=== PATIENT | female | born 1945 | race Caucasian/White ===

== ENCOUNTER 2020-11-08 15:37 | Emergency (ER) | payer MEDICARE ==
[~2020-11-08] VITALS: Ht 170.2 cm; Wt 59.0 kg
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
[2020-11-08 16:40] VITALS: BP 170/101
[2020-11-08] MEDS ORDERED: CLON0.1T PO (16:45)
--- NOTE | 2020-11-08 17:07 | EKG ---
[facility] ED [facility] [place] [id number] Test Date: 2020-11-08 Test Time: 15:51:15 Pat Name: JAMAL CH Department: Room: Gender: F [employer] Specialist: ANTOINETTE : 1945 Requested By: SHMUEL LOPEZ Order Number: [id number] Reading MD: Jose R Juarez Measurements Intervals [place] Rate: 76 P: 74 GA: 166 QRS: -7 QRSD: 78 T: 47 QT: 376 QTc: 427 Interpretive Statements SINUS RHYTHM LEFT ATRIAL ABNORMALITY LEFTWARD AXIS ABNORMAL ECG RI6.02 No previous ECG available for comparison Electronically Signed On 11-13-2020 9:56:58 [employer]QU[employer]CH[employer]IC by Jose R Juarez
== END 2020-11-08 16:51 | disposition home or self-care (01) ==
LOC: ER 15:37
DX: I10 Essential (primary) hypertension (principal); R51.9 Headache, unspecified; J44.9 Chronic obstructive pulmonary disease, unspecified
CPT/HCPCS: 93005; 99284

== ENCOUNTER 2020-11-23 14:44 | Emergency (ER) | payer MEDICARE ==
[~2020-11-23] VITALS: Ht 170.2 cm; Wt 59.0 kg
[~2020-11-23 14:44] MED LIST: CLON0.1T PO
--- NOTE | 2020-11-23 15:07 | PHYS DOC ---
Past History Past Medical History: Cancer, COPD, Hypertension, Other Additional Past Medical Histor: TREMORS Past Surgical History: Knee Replacement Additional Past Surgical Histo: IMPLANT FOR TREMORS Alcohol Use: None General Adult EDM: Chief Complaint: MECHANICAL FALL HPI: HPI: 75-year-old female past medical history of hypertension, COPD and familiar tremors, presents the ED with complaints of left wrist pain and tailbone pain after patient slipped on water on her porch, reports she landed in a seated position with her left hand flexed at her side to cetch her fall. Is right-hand dominant. No prior injury to the left hand/wrist. Reports she did not hit her head or lose consciousness. Is not any anticoagulants. Denies any alcohol or drug use. Does report she occasionally drinks no more than 1 shot of whiskey or liquor to help her sleep (last drink was 1.5 days ago). Reports she ambulated after falling. Reports her tetanus is up-to-date. Review of Systems: Review of Systems: Constitutional: Denies fever or chills Eyes: Denies change in visual acuity HENT: Denies nasal congestion or sore throat Respiratory: Denies cough or shortness of breath Cardiovascular: Denies chest pain or edema GI: Denies abdominal pain, nausea, vomiting, bloody stools or diarrhea : Denies dysuria, urinary or bowel retention or incontinence Musculoskeletal: Denies midline back pain, saddle anesthesia, radiculopathy, Integument: Denies rash or diaphoresis Neurologic: Denies headache, neck pain, focal weakness or sensory changes Endocrine: Denies polyuria or polydipsia Lymphatic: Denies swollen glands Psychiatric: Denies depression or anxiety Allergies: Allergies: Allergies Coded Allergies Type Severity Reaction Last Updated Verified erythromycin base Allergy Unknown Rash 11/23/20 Yes morphine Allergy Unknown stomach upset 11/23/20 Yes Physical Exam: PE: Constitutional: Well developed, well nourished, no acute distress, non-toxic appearance. HENT: Normocephalic, atraumatic, no periorbital hematoma, no septal hematoma, no hemotympanum, no oral bleeding, no signs of head trauma Eyes: PERRLA, EOMI, conjunctiva normal, no discharge. Neck: Normal range of motion, supple, Cardiovascular: S1/2 present, regular rhythm Lungs & Thorax: Speaking in full sentences, bilateral equal chest rise, no tachypnea or increased work of breathing Abdomen: soft, no tenderness, Skin: Warm, dry, no erythema, no rash. [] Back: No midline spinal tenderness or step-offs, pain over coccyx, no petechiae or contusions, Extremities: Equal upper extremity radial pulses, obvious left lateral wrist hematoma/ecchymosis w/medial wrist/dinner fork deformity, no left shoulder or elbow pain, baseline tremors, lifts both legs off stretcher but c/o coccyx pain when lifting left leg Neurologic: Alert and oriented X 3, normal motor function, normal sensory function, no focal deficits noted. [] Psychologic: Affect normal, judgement normal, mood normal. [] Current Patient Data: Vital Signs: Vital Signs Date Time Temp Pulse Resp B/P (MAP) Pulse Ox O2 Delivery O2 Flow Rate FiO2 11/23/20 14:45 98.4 71 16 185/109 (134) 98 Room Air EKG: EKG: [] Radiology/Procedures: Radiology/Procedures: IMAGING REPORT Signed PATIENT: JAMAL CH ACCOUNT: [id number] : 1945 LOCATION: ER AGE: 75 SEX: F EXAM STATUS: REG ER ORD. PHYSICIAN: KYRA TONG DO REASON: pain, pt fell PROCEDURE: FOREARM LEFT XR FOREARM_LEFT 2 VIEWS, XR HAND_LEFT 2 VIEWS, XR LT WRIST 2 VIEWS History: Reason: pain, pt fell / Spl. Instructions: / History: Technique: 2 views left forearm, 2 views left wrist and 2 views left hand Comparison: None. Findings: Acute comminuted intra-articular left distal radius fracture with dorsal displacement and angulation. Comminuted the distal ulnar fracture with displaced ulnar styloid. Advanced first carpal metacarpal triscaphe DJD. Impression: 1. Acute comminuted left distal radial intra-articular fracture with dorsal displacement and angulation. 2. Acute distal ulnar fracture with displaced ulnar styloid. Electronically signed by: Leo Mathis DO (11/23/2020 3:54 PM) [facility] DICTATED AND SIGNED BY: LEO MATHIS DO DATE: 11/23/20 1549 CC: MARK DOUGLASS; KYRA TONG DO ~MTH0 0 IMAGING REPORT Signed PATIENT: JAMAL CH ACCOUNT: [id number] : 1945 LOCATION: ER AGE: 75 SEX: F EXAM STATUS: REG ER ORD. PHYSICIAN: KYRA TONG DO REASON: coccyx pain, pt fell PROCEDURE: PELVIS XR SACRUM AND COCCYX 2+VIEWS, XR PELVIS 1-2V History: Reason: coccyx pain, pt fell / Spl. Instructions: / History: Technique: AP view the pelvis and 3 views of the sacrum and coccyx. Comparison: None. Findings: Normal AP alignment of the hips. No fracture. Mild bilateral hip DJD. Mild pubic symphysis DJD. Lower lumbar spondylosis. Chronic angular appearance of the lower sacrum. No definite fracture. Impression: 1. No acute osseous abnormality. Electronically signed by: Leo Mathis DO (11/23/2020 3:57 PM) [facility] DICTATED AND SIGNED BY: ELO MATHIS DO DATE: 11/23/20 1554 CC: MARK DOUGLASS; KYRA TONG DO ~MTH0 0 Indication: Left Colles' fracture Consent: Verbal consent given by patient Procedure: The pre-reduction exam showed Colles' flexure with dorsal displacement. The patient was placed in supine position. Anesthesia/pain control IM Dilaudid and hematoma block with ropivacaine. Reduction of the left distal radius fracture was performed by by myself. Post reduction films show some improvement-not total resolution. A post-reduction exam revealed neuro exam intact. The affected area was immobilized with sugar tong splint. The patient tolerated the procedure very well. Complications: None Patient and daughter at bedside informed of findings. Left sugar tong splint applied by myself and RN. The splint is checked by myself, with appropriate stabilization of the injury. Distal capillary refill intact and distal neurologic function intact Heart Score: Risk Factors: Risk Factors: DM, Current or recent (<one month) smoker, HTN, HLP, family history of CAD, obesity. Risk Scores: Score 0 - 3: 2.5% MACE over next 6 weeks - Discharge Home Score 4 - 6: 20.3% MACE over next 6 weeks - Admit for Clinical Observation Score 7 - 10: 72.7% MACE over next 6 weeks - Early Invasive Strategies Course & Med Decision Making: Course & Med Decision Making Pertinent Labs and Imaging studies reviewed. (See chart for details) Concern for left distal radius fracture, Colles' fracture with fracture dislocation of left ulnar styloid. Patient tolerated hematoma block and 1 mg of IM Dilaudid -was able to reduce without any significant patient discomfort (I did offer procedural sedation but both patient and her daughter at bedside declined this option given risk of apnea and patient's high pain tolerance). Patient placed in a sugar tong splint -her daughter given instructions on splint care, urgent orthopedic surgery evaluation, and prescription medication education (daughter is a pumper gauger apprentice who use to work at [employer] and pt lives with her - will observe with DosYogures use). Will discharge home with strict ED return precautions were given for severe pain, neurologic deficits, skin color changes or sensorimotor deficits. Encouraged urgent outpatient follow-up with PMD and urgent orthopedic evaluation in the next 7 days. Life-threatening processes were considered but are low suspicion at this time, given history, physical exam and ED workup. Pt was educated on all prescription medications and adverse effects. All patient's questions were answered and pt was stable at time of discharge. Life/limb-threatening differential includes but is not limited to, intracranial hemorrhage, diffuse axonal injury, spinal cord syndrome, unstable cervical fracture or SCIWORA, fractures or joint dislocations, neurovascular injuries, organ injury or laceration, pneumothorax, pneumoperitoneum, pericardial tamponade, unstable pelvic fracture, compartment syndrome, flail chest or respiratory distress, burn injury or asphyxiation I spoken with the patient and her caregivers. I explained the patient's condition, diagnoses and treatment plan based on the information available to me at this time. I have answered the patient and her caregiver's questions and addressed any concerns. The patient and her caregivers have a good understanding of patient's diagnosis, condition and treatment plan as can be expected at this point. Vital signs have been stable. Patient's condition is stable and appropriate for discharge from the emergency department. Patient will pursue further outpatient evaluation with primary care physician or other designated or consulting physician as outlined in the discharge instructions. The patient and/or caregivers are agreeable to this plan of care and follow-up instructions have been explained in detail. The patient and/or caregivers have received these instructions in written form and have expressed an understanding of the discharge instructions. The patient and/or caregivers are aware that any significant change of condition or worsening of symptoms should prompt immediate return to this or the closest emergency department or call to 91. Marija Disclaimer: Marija Disclaimer: This electronic medical record was generated, in whole or in part, using a voice recognition dictation system. Departure Departure: Impression: Primary Impression: Colles' fracture of left radius Additional Impressions: Dislocation of left ulnar styloid Fracture of right ulnar styloid Disposition: 01 DC HOME SELF CARE/HOMELESS Condition: STABLE Referrals: MARK DOUGLASS (PCP) Patient Instructions: Cast or Splint Care, Colles Fracture, Radius Fracture with [facility], Ulnar Fracture Additional Instructions: FOLLOW UP WITH ORTHOPEDICS: within 7 days for ortho evaluation [facility] [address] [address] EMERGENCY DEPARTMENT GENERAL DISCHARGE INSTRUCTIONS Thank you for coming to [facility] (ED) today and trusting us with you care. We trust that you had a positivie experience in our Emergency Department. If you wish to speak to the department management, you may call the director at [phone]. YOUR FOLLOW UP INSTRUCTIONS ARE FOLLOWS: 1. Do you have a private Doctor? If you do not have a private doctor, please ask for a resource list of physicians or clinics that may be able to assist you with follow up care. 2. The Emergency Physician has interpreted your x-rays. The X-Ray specialist will also review them. If there is a change in the findings, you will be notified in 48 hours when at all possible. 3. A lab test or culture has been done, your results will be reviewed and you will be notified if you need a change in treatment. ADDITIONAL INSTRUCTIONS AND INFORMATION: 1. Your care today has been supervised by a physician who is specially trained in emergency care. Many problems require more than one evaluation for a complete diagnosis and treatment. We recommend that you schedule your follow up appointment as recommended to ensure complete treatment of you illness or injury. If you are unable to obtain follow up care and continue to have a problem, or if your condition worsens, we recommend that you return to the ED. 2. We are not able to safely determine your condition over the phone nor are we able to give sound medical advice over the phone. For these safety reasons, if you call for medical advice we will ask you to come to the ED for further evaluation. 3. If you have any questions regarding these discharge instructions please call the ED at [phone]. SAFETY INFORMATION: In the interest of safety, wellness, and injury prevention; we encourage you to wear your sealbelt, if you smoke; quite smoking, and we encourage family to use a protective helmet for bicycling and other sporting events that present an increased risk for head injury. IF YOUR SYMPTOMS WORSEN OR NEW SYMPTOMS DEVELOP, OR YOU HAVE CONCERNS ABOUT YOUR CONDITION; OR IF YOUR CONDITION WORSENS WHILE YOU ARE WAITING FOR YOUR FOLLOW UP A PPOINTMENT; EITHER CONTACT YOUR PRIMARY CARE DOCTOR, THE PHYSICIAN WHOSE NAME AND NUMBER YOU WERE GIVEN, OR RETURN TO THE ED IMMEDIATELY. Scripts Hydrocodone Bit/Acetaminophen (HYDROCODONE-APAP 5-325 ) 1 Each Tablet 1 TAB PO PRN Q6HRS PRN for PAIN for 4 Days, #16 TAB 0 Refills take with colace and fiber, causes constipation Prov: KYRA TONG DO 11/23/20 KYRA TONG DO Nov 23, 2020 15:06
--- NOTE | 2020-11-23 15:56 | RAD ---
XR FOREARM_LEFT 2 VIEWS, XR HAND_LEFT 2 VIEWS, XR LT WRIST 2 VIEWS History: Reason: pain, pt fell / Spl. Instructions: / History: Technique: 2 views left forearm, 2 views left wrist and 2 views left hand Comparison: None. Findings: Acute comminuted intra-articular left distal radius fracture with dorsal displacement and angulation. Comminuted the distal ulnar fracture with displaced ulnar styloid. Advanced first carpal metacarpal triscaphe DJD. Impression: 1. Acute comminuted left distal radial intra-articular fracture with dorsal displacement and angulat ion. 2. Acute distal ulnar fracture with displaced ulnar styloid. Electronically signed by: Leo Mathis DO (11/23/2020 3:54 PM) [facility]
--- NOTE | 2020-11-23 15:59 | RAD ---
XR SACRUM AND COCCYX 2+VIEWS, XR PELVIS 1-2V History: Reason: coccyx pain, pt fell / Spl. Instructions: / History: Technique: AP view the pelvis and 3 views of the sacrum and coccyx. Comparison: None. Findings: Normal AP alignment of the hips. No fracture. Mild bilateral hip DJD. Mild pubic symphysis DJD. Lower lumbar spondylosis. Chronic angular appearance of the lower sacrum. No definite fracture. Impression: 1. No acute osseous abnormality. Electronically signed by: Leo Mathis DO (11/23/2020 3:57 PM) [facility]
--- NOTE | 2020-11-23 15:59 | RAD ---
XR SACRUM AND COCCYX 2+VIEWS, XR PELVIS 1-2V History: Reason: coccyx pain, pt fell / Spl. Instructions: / History: Technique: AP view the pelvis and 3 views of the sacrum and coccyx. Comparison: None. Findings: Normal AP alignment of the hips. No fracture. Mild bilateral hip DJD. Mild pubic symphysis DJD. Lower lumbar spondylosis. Chronic angular appearance of the lower sacrum. No definite fracture. Impression: 1. No acute osseous abnormality. Electronically signed by: Leo Mathis DO (11/23/2020 3:57 PM) [facility]
[2020-11-23] MEDS ORDERED: HYDROmorphone PF 1 MG/ML DISP.SYRIN IM ONE (16:30)
[2020-11-23] MEDS ORDERED: ONDANSETRON ODT 4 MG TAB.RAPDIS PO ONE (16:30)
[2020-11-23] MEDS ORDERED: BUPIVACAINE MPF 0.5% 30 ML VIAL. INFIL ONE (16:30)
[2020-11-23 17:20] VITALS: BP 187/97
[2020-11-23] MEDS ORDERED: HYDR-2155 PO (17:38)
--- NOTE | 2020-11-23 17:44 | RAD ---
XR LT WRIST 2 VIEWS History: Reason: s.p reduction / Spl. Instructions: / History: Technique: 2 views left wrist Comparison: November 23, 2020 Findings: Acute comminuted intra-articular left distal radial fracture, unchanged alignment. Acute distal ulnar fracture with displaced ulnar styloid, unchanged alignment. Interval casting. Advanced first carpome tacarpal and triscaphe DJD. Impression: 1. Interval casting acute comminuted distal radial and ulnar fractures, unchanged alignment. Electronically signed by: Leo Mathis DO (11/23/2020 5:41 PM) [facility]
== END 2020-11-23 17:45 | disposition home or self-care (01) ==
LOC: ER 14:44
DX: S63.075A Dislocation of distal end of left ulna, initial encounter (principal); S52.532A Colles' fracture of left radius, initial encounter for closed fracture; J44.9 Chronic obstructive pulmonary disease, unspecified; I10 Essential (primary) hypertension; Z98.890 Other specified postprocedural states; Z85.9 Personal history of malignant neoplasm, unspecified; Z88.1 Allergy status to other antibiotic agents; Z88.6 Allergy status to analgesic agent; W19.XXXA Unspecified fall, initial encounter; Y93.89 Activity, other specified; Y92.89 Other specified places as the place of occurrence of the external cause; Y99.8 Other external cause status
CPT/HCPCS: 25605; 72170; 72220; 73090; 73100; 73120; 96372; 99284; J1170; Q0162

== ENCOUNTER → 2020-12-31 | Outpatient (CLI) | payer MEDICARE ==
[~2020-12-31] MED LIST changes: +HYDR-2155 PO
--- NOTE | 2021-01-01 08:52 | RAD ---
EXAM: CT Chest without IV contrast INDICATION: Reason: SHORT OF AIR, EMPHYSEMA / Spl. Instructions: / History: TECHNIQUE: Multi-detector row CT images were acquired from the thoracic inlet through the upper abdo men without the use of IV contrast. Sagittal and coronal images were acquired from the transaxial jana a. All CT scans performed at this facility utilize dose optimization techniques as appropriate to the exam, including the following: Automated exposure control and adjustment of the mA and/or KV accordi ng to patient size (this includes techniques or standardized protocols for targeted exams where dose is indication/reason for exam). COMPARISON: PA and lateral views of the chest dated 12/27/2020 FINDINGS: The absence of IV contrast limits evaluation of soft tissue pathology. CARDIOVASCULAR: Normal caliber thoracic aorta with tortuosity. Multivessel coronary calcifications. Normal heart size. MEDIASTINUM & JAYME: Small hiatal hernia. LUNGS: Mild diffuse centrilobular emphysema. A 3 mm pleural-based peripheral left lower lobe pulmonar y nodule (image 73 series 2) is present. A calcified nodule in the left lateral costophrenic angle is also present (image 80). There is mild peribronchial thickening most conspicuous in the right lower lobe. Tiny linear scarring of the medial right left lung base (image 80). Otherwise no pulmonary infi ltrate, nodule, or other focal abnormality. PLEURAL SPACE: No pleural effusions or pneumothorax. OSSEOUS & SOFT TISSUE: Left chest neurostimulator. ABDOMEN: The visualized portions of the upper abdomen are unremarkable. IMPRESSION: 1. Emphysema with peribronchial thickening best appreciated in the right lower lobe that could reflec t sequelae of chronic bronchitis. No parenchymal consolidation. Per Fleischner Society guidelines for pulmonary nodule follow-up, the 3 mm peripheral left lower lobe pulmonary nodule can be followed up in 12 months at the referring provider's discretion (i.e. it is optional). 2. Extensive coronary calcification, primarily along the LAD. Electronically signed by: Qasim Hearn MD (01/01/2021 8:49 AM) [id number]
== END ==
LOC: CT 13:32
PROVIDERS: ATTEND Internal Medicine Pulmonary Disease
DX: J43.9 Emphysema, unspecified (principal); R91.1 Solitary pulmonary nodule; I25.10 Atherosclerotic heart disease of native coronary artery without angina pectoris
CPT/HCPCS: 71250

== ENCOUNTER 2021-06-18 20:24 | Emergency (ER) | payer MEDICARE, OTHER ==
[~2021-06-18] VITALS: Ht 170.2 cm; Wt 59.0 kg
[2021-06-18] MEDS ORDERED: hydrALAZINE 20 MG/ML VIAL. IV ONE (20:45)
[2021-06-18 21:08] LABS: BILIRUBIN,URINE NEG (NEG); CLARITY,URINE CLEAR; COLOR,URINE YELLOW; GLUCOSE,URINE NEG (NEG); NITRITE,URINE NEG (NEG); UROBILINOGEN,URINE 0.2 mg/dL (0.2 mg/dL)
[2021-06-18 21:13] LABS: BACTERIA,URINE 0 /HPF (0-FEW); RBC,URINE 0 /HPF (0-2)
--- NOTE | 2021-06-18 21:17 | PHYS DOC ---
Past History Past Medical History: Cancer, COPD, Hypertension, Other Additional Past Medical Histor: TREMORS Past Surgical History: Knee Replacement Additional Past Surgical Histo: IMPLANT FOR TREMORS Alcohol Use: None General Adult EDM: Chief Complaint: HYPERTENSION HPI: HPI: 75-year-old female presents with hypertension. She was at a doctor's appointment today and her blood pressure was elevated. She had 2 additional blood pressures taken and they were even higher. 200s over 110s. They advised the patient to come to emergency room. They went to and sat in the emergency room for an hour and a half. They then decided to leave, drive all the way over here and come to this ER. The patient has some mild dizziness but no other symptoms. She has been taking her medications. She takes all meds in the morning. She has no idea why but blood pressure is high today. Review of Systems: Review of Systems: Constitutional: Denies fever or chills Eyes: Denies change in visual acuity HENT: Denies nasal congestion or sore throat Respiratory: Denies cough or shortness of breath Cardiovascular: Denies chest pain or edema GI: Denies abdominal pain, nausea, vomiting, bloody stools or diarrhea : Denies dysuria Musculoskeletal: Denies back pain or joint pain Integument: Denies rash Neurologic: Dizziness. Denies headache, focal weakness or sensory changes Endocrine: Denies polyuria or polydipsia Lymphatic: Denies swollen glands Psychiatric: Denies depression or anxiety Current Medications: Current Meds: Current Medications Medications (Trade) Dose Ordered Sig/[facility] Start Time Stop Time Status Last Admin Dose Admin Hydralazine HCl (Apresoline) 10 mg 1X ONCE 06/18/21 20:45 06/18/21 20:52 DC Allergies: Allergies: Allergies Coded Allergies Type Severity Reaction Last Updated Verified erythromycin base Allergy Unknown Rash 11/23/20 Yes morphine Allergy Unknown stomach upset 11/23/20 Yes Physical Exam: PE: Constitutional: Well developed, well nourished, no acute distress, non-toxic appearance. [] HENT: Normocephalic, atraumatic, bilateral external ears normal, oropharynx moist, no oral exudates, nose normal. [] Eyes: PERRLA, EOMI, conjunctiva normal, no discharge. [] Neck: Normal range of motion, no tenderness, supple, no stridor. [] Cardiovascular: Heart rate regular rhythm, no murmur [] Lungs & Thorax: Bilateral breath sounds clear to auscultation [] Abdomen: Bowel sounds normal, soft, no tenderness, no masses, no pulsatile masses. [] Skin: Warm, dry, no erythema, no rash. [] Back: No tenderness, no CVA tenderness. [] Extremities: No tenderness, no cyanosis, no clubbing, ROM intact, no edema. [] Neurologic: Essential tremor. Alert and oriented X 3, normal motor function, normal sensory function, no focal deficits noted. [] Psychologic: Affect normal, judgement normal, mood frustrated. [] Current Patient Data: Labs: Laboratory Tests Test 06/18/21 20:45 Urine Collection Type Unknown Urine Color Yellow Urine Clarity Clear Urine pH 7.0 Urine Specific [place] 1.010 Urine Protein Neg (NEG-TRACE) Urine Glucose (UA) Neg mg/dL (NEG) Urine Ketones (Stick) Neg mg/dL (NEG) Urine Blood Neg (NEG) Urine Nitrite Neg (NEG) Urine Bilirubin Neg (NEG) Urine Urobilinogen Dipstick 0.2 mg/dL (0.2 mg/dL) Urine Leukocyte Esterase Trace (NEG) Urine RBC 0 /HPF (0-2) Urine WBC 1-4 /HPF (0-4) Urine Squamous Epithelial Cells None /LPF Urine Bacteria 0 /HPF (0-FEW) EKG: EKG: Sinus rhythm, rate 63, leftward axis, no ST elevation or depression. [] Radiology/Procedures: Radiology/Procedures: [] Impressions: EXAMINATION: Chest radiograph. VIEWS: Single AP view of the chest COMPARISON: CT chest from 12/31/2020 INDICATION:75 years, Female, hypertension. FINDINGS: Left chest neurostimulator. Normal cardiomediastinal silhouette. Similar blunting of the left costophrenic angle with scattered bibasilar scarring/atelectasis. No focal consolidation. No pleural effusion or pneumothorax. No acute osseous process. IMPRESSION: No acute cardiopulmonary process. Electronically signed by: Arik Mark DO (06/19/2021 12:00 AM) [facility] DICTATED AND SIGNED BY: ARIK MARK DO DATE: 06/18/21 4504 CC: HARMONY TA DO; MARK DOUGLASS ~MTH0 0 Heart Score: C/O Chest Pain: N/A Risk Factors: Risk Factors: DM, Current or recent (<one month) smoker, HTN, HLP, family history of CAD, obesity. Risk Scores: Score 0 - 3: 2.5% MACE over next 6 weeks - Discharge Home Score 4 - 6: 20.3% MACE over next 6 weeks - Admit for Clinical Observation Score 7 - 10: 72.7% MACE over next 6 weeks - Early Invasive Strategies Course & Med Decision Making: Course & Med Decision Making Pertinent Labs and Imaging studies reviewed. (See chart for details) The patient's labs are unremarkable. Her blood pressure improved after 10mg of hydralazine. Her blood pressure then went back up so she was given 0.2 of clonidine. The patient's blood pressure is 146/75. She is stable for discharge at this time. [] Dragon Disclaimer: Dragon Disclaimer: This electronic medical record was generated, in whole or in part, using a voice recognition dictation system. Departure Departure: Impression: Primary Impression: Hypertension Disposition: HOME / SELF CARE / HOMELESS Condition: IMPROVED Referrals: MARK DOUGLASS (PCP) Patient Instructions: Hypertension, [id number] HARMONY TA DO Jun 18, 2021 21:17
[2021-06-18 22:14] LABS: BASO % 1 % (0-3); EOS # 0.2 x10^3/uL (0.0-0.7); EOS % 4 % (0-3); HEMATOCRIT 38.7 % (36.0-47.0); HEMOGLOBIN 12.8 g/dL (12.0-15.5); LYMPH # 1.5 x10^3/uL (1.0-4.8); LYMPH % 22 % (24-48); MEAN CORPUSCULAR HEMOGLOBIN 31 pg (25-35); MEAN CORPUSCULAR HGB CONC 33 g/dL (31-37); MEAN CORPUSCULAR VOLUME 93 fL (79-100); MONO # 0.8 x10^3/uL (0.0-1.1); MONO % 11 % (0-9); NEUT # 4.3 x10^3uL (1.8-7.7); NEUT % 63 % (31-73); PLATELET COUNT 277 x10^3/uL (140-400); RED BLOOD COUNT 4.18 x10^6/uL (3.50-5.40); RED CELL DISTRIBUTION WIDTH 14.4 % (11.5-14.5); WHITE BLOOD COUNT 6.9 x10^3/uL (4.0-11.0)
[2021-06-18 22:21] LABS: CALCIUM 9.2 mg/dL (8.5-10.1); CREATININE 0.9 mg/dL (0.6-1.0); POTASSIUM 3.5 mmol/L (3.5-5.1)
[2021-06-18 22:27] LABS: ALBUMIN 3.1 g/dL (3.4-5.0); ALBUMIN/GLOBULIN RATIO 0.9 (1.0-1.7); TOTAL BILIRUBIN 0.2 mg/dL (0.2-1.0); TOTAL PROTEIN 6.5 g/dL (6.4-8.2)
[2021-06-18] MEDS ORDERED: cloNIDine HCL 0.1 MG TABLET PO ONE ×2 (22:30→23:30)
[2021-06-19] MEDS ORDERED: hydrALAZINE 20 MG/ML VIAL. IV ONE
--- NOTE | 2021-06-19 00:02 | RAD ---
EXAMINATION: Chest radiograph. VIEWS: Single AP view of the chest COMPARISON: CT chest from 12/31/2020 INDICATION:75 years, Female, hypertension. FINDINGS: Left chest neurostimulator. Normal cardiomediastinal silhouette. Similar blunting of the left costoph renic angle with scattered bibasilar scarring/atelectasis. No focal consolidation. No pleural effusio n or pneumothorax. No acute osseous process. IMPRESSION: No acute cardiopulmonary process. Electronically signed by: Arik Rosa DO (06/19/2021 12:00 AM) [facility]
[2021-06-19 00:17] VITALS: BP 146/75
--- NOTE | 2021-06-19 07:21 | EKG ---
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
== END 2021-06-19 00:17 | disposition home or self-care (01) ==
LOC: ER 20:24
DX: I10 Essential (primary) hypertension (principal); R42 Dizziness and giddiness; J44.9 Chronic obstructive pulmonary disease, unspecified; Z88.1 Allergy status to other antibiotic agents; Z88.5 Allergy status to narcotic agent
CPT/HCPCS: 36415; 71045; 80053; 81001; 84484; 85025; 87086; 93005; 96374; 96376; 99285; J0360

== ENCOUNTER → 2022-01-21 | Outpatient (CLI) | payer MEDICARE ==
--- NOTE | 2022-01-21 13:46 | RAD ---
CT THORAX WO History: Smoking history. Lung nodule follow-up. Comparison: CT chest 12/31/2020. Technique: Noncontrast CT of the chest. Findings: Assessment is limited by lack of IV contrast. Cardiovascular: Mild aortic calcification. Moderate to heavy coronary artery calcification. Normal he art size. No pericardial effusion. Mediastinum and los: No adenopathy. Dense calcification anterior left thyroid redemonstrated. Modera te sliding hiatal hernia. Airways, lungs and pleura: Patent airways. Mild lower lobe predominant bronchial wall thickening with right lower lobe rounded atelectasis and traction bronchiectasis. Mild emphysema. Stable left lower lobe 3 mm nodule (axial 73). New groundglass nodule left lower lobe measuring 6 mm (axial 73) with ad jacent increased interstitial markings. No effusion or pneumothorax. Upper abdomen: Partially visualized right upper pole renal cyst. Partially visualized calcification i n the shantelle hepatis measuring at least 8 mm may represent partially visualized gallstone. Osseous structures and soft tissues: Redemonstrated compression deformities of the T11 and T12 verteb ral bodies. Advanced degenerative changes at C6-C7 partially visualized. Biphasic thoracolumbar curva ture. Impression: 1. Stable appearance of 3 mm left lower lobe nodule. 2. New 6 mm groundglass nodule in the left lower lobe surrounding area of interstitial opacity sugge sts possible infectious or inflammatory process. Recommend 6-12 month follow-up noncontrast CT of the Fleischner guidelines for groundglass nodules. 3. Emphysematous changes and bronchial wall thickening can compatible with COPD. ------ Exposure: One or more of the following individualized dose reduction techniques were utilized for thi s examination: 1. Automated exposure control 2. Adjustment of the mA and/or kV according to patient size 3. Use of iterative reconstruction technique. Electronically signed by: Denver Ervin MD (01/21/2022 1:43 PM) [facility]
== END ==
LOC: CT 11:46
PROVIDERS: ATTEND Internal Medicine Pulmonary Disease
DX: R91.8 Other nonspecific abnormal finding of lung field (principal); J47.9 Bronchiectasis, uncomplicated; J43.9 Emphysema, unspecified; J98.11 Atelectasis; I25.10 Atherosclerotic heart disease of native coronary artery without angina pectoris; I70.0 Atherosclerosis of aorta; K44.9 Diaphragmatic hernia without obstruction or gangrene; N28.1 Cyst of kidney, acquired; M47.812 Spondylosis without myelopathy or radiculopathy, cervical region
CPT/HCPCS: 71250